=== PATIENT | female | born 1995 | race American Indian/Alaskan Native ===

== ENCOUNTER 2017-03-09 08:34 | Emergency (ER) | payer MEDICAID, OTHER ==
[2017-03-09] MEDS ORDERED: REGLAN IV ONE (09:20)
[2017-03-09] MEDS ORDERED: XYLOCAINE TOPICAL 4% TP ONE (09:20)
[2017-03-09] MEDS ORDERED: BENADRYL IV ONE (09:20)
[2017-03-09] MEDS ORDERED: MAGNESIUM SULFATE 2GM/50ML 2 GM/50 ML BAG IV ONE (09:20)
--- NOTE | 2017-03-09 09:26 | Emergency Department Report ---
ED General Adult HPI - General Chief complaint: Headache Stated complaint: LT ARM NUMB/LIPS NUMB /LT ARM PAIN Time Seen by Provider: 03/09/17 09:12 Source: patient, RN notes reviewed Mode of arrival: Ambulatory Limitations: No Limitations - History of Present Illness Initial comments: This is a 21-year-old female. She is previously unknown to me. She reports a history of stroke at the age of 18 (reports that she was seen at [facility], in [place]) she cannot further elaborate on this. She reports that she was diagnosed with a stroke secondary to "the hairs on my arm standing up." Patient presents to the ER with multiple complaints. The patient's first complaint is headache. The headache is left-sided. It is sharp, throbbing" dull and strong at the same time." The headache has been present for 4 days. It is not sudden or maximal in intensity. It did not reach maximal intensity within an hour. It has been waxing and waning for the past 4 days, and got worse yesterday. It is not the worst headache of her life, she reports headache that was worse last year. The patient's last complaint is left arm pain. The pain starts from the left shoulder and then radiates to the left elbow. It does not go distal. The patient to me indicates that she is not having left arm numbness or weakness. The patient's next complaint is numbness. The numbness is on the internal side of both lips. It has since resolved. There is no midline neck pain, there is no chest pain, there is no abdominal pain, there is no shortness of breath. There is no leg pain or leg swelling. No recent trips greater than 4 hours. No recent hospital admissions. -: Gradual Location: head (headache has been present for 4 days), mouth (superior and inferior lip numbness which has since resolved), left, upper extremity (left upper extremity pain from shoulder to elbow) Severity scale (0 -10): 9 Quality: aching Consistency: intermittent Improves with: other (headache worsens with exposure to light. Left arm pain worsens with palpation and range of motion.) Worsens with: other (as per history of present illness) Associated Symptoms: other (as per history of present illness) - Related Data Previous Rx's Medication Instructions Recorded Last Taken Type Ibuprofen [Motrin] 600 mg PO Q8H PRN #30 tablet 03/09/17 Unknown Rx Ondansetron [Zofran Odt] 4 mg PO QID PRN #20 tab.rapdis 03/09/17 Unknown Rx Allergies Allergy/AdvReac Type Severity Reaction Status Date / Time No Known Allergies Allergy Unverified 03/09/17 08:41 ED Review of Systems ROS: Stated complaint: LT ARM NUMB/LIPS NUMB /LT ARM PAIN Other details as noted in HPI Constitutional: denies: fever, malaise Eyes: denies: vision change ENT: as per HPI Respiratory: denies: cough Cardiovascular: denies: chest pain Gastrointestinal: denies: abdominal pain Genitourinary: as per HPI Musculoskeletal: arthralgia, myalgia Skin: denies: lesions Neurological: headache ED Past Medical Hx - Past Medical History Previous Medical History?: Yes Hx CVA: Yes - Surgical History Past Surgical History?: No - Social History Smoking Status: Current Every Day Smoker Substance Use Type: None - Medications Home Medications: Home Medications Medication Instructions Recorded Confirmed Last Taken Type Ibuprofen [Motrin] 600 mg PO Q8H PRN #30 tablet 03/09/17 Unknown Rx Ondansetron [Zofran Odt] 4 mg PO QID PRN #20 tab.rapdis 03/09/17 Unknown Rx ED Physical Exam - General Limitations: No Limitations General appearance: alert, in no apparent distress - Head Head exam: Present: atraumatic, normocephalic - Eye Eye exam: Present: normal appearance, PERRL, EOMI. Absent: nystagmus - ENT ENT exam: Present: normal exam, normal orophraynx, mucous membranes moist, normal external ear exam - Neck Neck exam: Present: normal inspection, full ROM. Absent: tenderness, meningismus - Respiratory Respiratory exam: Present: normal lung sounds bilaterally. Absent: respiratory distress, wheezes, rales, rhonchi, stridor, chest wall tenderness, accessory muscle use, decreased breath sounds, prolonged expiratory - Cardiovascular Cardiovascular Exam: Present: regular rate, normal rhythm, normal heart sounds. Absent: bradycardia, tachycardia, irregular rhythm, systolic murmur, diastolic murmur, rubs, gallop - GI/Abdominal GI/Abdominal exam: Present: soft, normal bowel sounds. Absent: distended, tenderness, guarding, rebound, rigid, pulsatile mass - Extremities Exam Extremities exam: Present: normal inspection, full ROM, tenderness (the left medial biceps/arm is somewhat tender. The compartments are soft. There is no redness, pus or streaking), normal capillary refill. Absent: pedal edema, joint swelling, calf tenderness - Back Exam Back exam: Present: normal inspection, full ROM. Absent: tenderness, CVA tenderness (R), CVA tenderness (L), muscle spasm, paraspinal tenderness, vertebral tenderness - Neurological Exam Neurological exam: Present: alert (visual acuity intact to finger counting, color perception, reading at a close distance), oriented X3, normal gait ( normal [id number]. Negative pass pointing. Negative pronator drift. Normal gait.), other (Extraocular movements intact. Tongue midline. No facial droop. Facial sensation intact to light touch in the V1, V2, V3 distribution bilaterally. 5 and 5 strength in 4 extremities.. Sensation is intact to light touch in 4 extremities.). Absent: motor sensory deficit (sensation intact to light touch and pinprick in the bilateral upper and lower extremities) - Psychiatric Psychiatric exam: Present: normal affect, normal mood - Skin Skin exam: Present: warm, dry, intact, normal color. Absent: rash ED Course Vital Signs 03/09/17 03/09/17 03/09/17 08:43 08:51 09:01 Temperature 98 F Pulse Rate 74 Respiratory 18 Rate Blood Pressure 137/80 130/63 Blood Pressure [Right] O2 Sat by Pulse 97 99 100 Oximetry 03/09/17 03/09/17 03/09/17 09:09 09:11 09:27 Temperature 97.8 F Pulse Rate 62 Respiratory 18 Rate Blood Pressure 130/63 145/107 Blood Pressure 130/63 [Right] O2 Sat by Pulse 100 100 100 Oximetry 03/09/17 03/09/17 03/09/17 10:01 10:11 10:21 Temperature Pulse Rate Respiratory Rate Blood Pressure 145/107 145/107 116/66 Blood Pressure [Right] O2 Sat by Pulse 100 100 100 Oximetry 03/09/17 03/09/17 03/09/17 10:30 10:41 10:51 Temperature Pulse Rate Respiratory Rate Blood Pressure 109/62 125/65 125/65 Blood Pressure [Right] O2 Sat by Pulse 100 100 100 Oximetry 03/09/17 03/09/17 03/09/17 11:00 11:11 11:21 Temperature Pulse Rate Respiratory Rate Blood Pressure 145/77 145/77 122/56 Blood Pressure [Right] O2 Sat by Pulse 100 100 99 Oximetry 03/09/17 03/09/17 11:30 14:21 Temperature 98.2 F Pulse Rate 55 L Respiratory 20 Rate Blood Pressure 128/54 Blood Pressure 102/61 [Right] O2 Sat by Pulse 100 99 Oximetry - Reevaluation(s) Reevaluation #1: 03/09/17 09:47 Differential diagnosis: Migraine headache, tension headache, cluster headache, multiple sclerosis, left upper extremity DVT Assessment and plan: 21-year-old female with multiple complaints. Headache is not historically consistent with subarachnoid hemorrhage or ischemic stroke. The patient has an NIH score of 0, and a GCS of 15. 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 Highly doubt acute coronary syndrome, low risk by ALEXANDRO score, low risk by Hartzler, EKG morphologically unremarkable, with sinus bradycardia. No pulmonary embolus or DVT risk factors, low risk by well's criteria, perc negative. We will obtain a noncontrast CT scan of the brain to exclude gross structural disease, will check basic laboratory studies, we will obtain left upper extremity DVT study, the patient will be treated symptomatically. 03/09/17 09:50 03/09/17 15:01 Reevaluation #2: 03/09/17 13:50 ct head negative repeat neuro exam wnl repeat vitals stable patient appears comfortable her symptoms do not appear being consistent with stroke/TIA. She was suitable for follow-up with an outpatient primary care doctor/ neurologist. She will be discharged at this time. Return precautions are reviewed. ED Medical Decision Making - Lab Data Result diagrams: 03/09/17 10:52 03/09/17 10:52 Vital Signs 03/09/17 03/09/17 08:43 09:09 Temperature 98 F 97.8 F Pulse Rate 74 62 Respiratory 18 18 Rate Blood Pressure 137/80 Blood Pressure 130/63 [Right] O2 Sat by Pulse 97 100 Oximetry Vital Signs 03/09/17 03/09/17 03/09/17 08:43 08:51 09:01 Temperature 98 F Pulse Rate 74 Respiratory 18 Rate Blood Pressure 137/80 130/63 Blood Pressure [Right] O2 Sat by Pulse 97 99 100 Oximetry 03/09/17 03/09/17 03/09/17 09:09 09:11 09:27 Temperature 97.8 F Pulse Rate 62 Respiratory 18 Rate Blood Pressure 130/63 145/107 Blood Pressure 130/63 [Right] O2 Sat by Pulse 100 100 100 Oximetry 03/09/17 03/09/17 03/09/17 10:01 10:11 10:21 Temperature Pulse Rate Respiratory Rate Blood Pressure 145/107 145/107 116/66 Blood Pressure [Right] O2 Sat by Pulse 100 100 100 Oximetry 03/09/17 03/09/17 03/09/17 10:30 10:41 10:51 Temperature Pulse Rate Respiratory Rate Blood Pressure 109/62 125/65 125/65 Blood Pressure [Right] O2 Sat by Pulse 100 100 100 Oximetry 03/09/17 03/09/17 03/09/17 11:00 11:11 11:21 Temperature Pulse Rate Respiratory Rate Blood Pressure 145/77 145/77 122/56 Blood Pressure [Right] O2 Sat by Pulse 100 100 99 Oximetry 03/09/17 11:30 Temperature Pulse Rate Respiratory Rate Blood Pressure 128/54 Blood Pressure [Right] O2 Sat by Pulse 100 Oximetry Lab Results 03/09/17 03/09/17 03/09/17 Range/Units 10:52 10:52 10:52 WBC 10.1 (4.5-11.0) K/mm3 RBC 4.42 (3.65-5.03) M/mm3 Hgb 12.9 (10.1-14.3) gm/dl Hct 38.4 (30.3-42.9) % MCV 87 (79-97) fl MCH 29 (28-32) pg MCHC 34 (30-34) % RDW 13.8 (13.2-15.2) % Plt Count 349 (140-440) K/mm3 PT 13.4 (12.2-14.9) Sec. INR 1.03 (0.87-1.13) APTT 28.6 (24.2-36.6) Sec. Sodium 142 (137-145) mmol/L Potassium 4.0 (3.6-5.0) mmol/L Chloride 103.8 (98-107) mmol/L Carbon Dioxide 24 (22-30) mmol/L Anion Gap 18 mmol/L BUN 12 (7-17) mg/dL Creatinine 0.6 L (0.7-1.2) mg/dL Estimated GFR > 60 ml/min BUN/Creatinine Ratio 20.00 % Glucose 89 (65-100) mg/dL Calcium 9.3 (8.4-10.2) mg/dL Total Creatine Kinase 279 H (30-135) units/L Troponin T < 0.010 (0.00-0.029) ng/mL HCG, Quant (0-4) mIU/mL 03/09/17 Range/Units 10:52 WBC (4.5-11.0) K/mm3 RBC (3.65-5.03) M/mm3 Hgb (10.1-14.3) gm/dl Hct (30.3-42.9) % MCV (79-97) fl MCH (28-32) pg MCHC (30-34) % RDW (13.2-15.2) % Plt Count (140-440) K/mm3 PT (12.2-14.9) Sec. INR (0.87-1.13) APTT (24.2-36.6) Sec. Sodium (137-145) mmol/L Potassium (3.6-5.0) mmol/L Chloride (98-107) mmol/L Carbon Dioxide (22-30) mmol/L Anion Gap mmol/L BUN (7-17) mg/dL Creatinine (0.7-1.2) mg/dL Estimated GFR ml/min BUN/Creatinine Ratio % Glucose (65-100) mg/dL Calcium (8.4-10.2) mg/dL Total Creatine Kinase (30-135) units/L Troponin T (0.00-0.029) ng/mL HCG, Quant < 2 (0-4) mIU/mL - EKG Data 03/09/17 09:51 sinus bradycardia, 57 bpm, normal intervals, normal axis, not morphologically consistent with STEMI. - Radiology Data Radiology results: pending, report reviewed LIVE [facility] NAHEDDONI Tyler [facility] 1995 [id number] 03/09/17 10:07 - Radiology Dept. Note by NADEEN PINEDA Acct Num: [id number] : 1995 Patient Age: 21 VASCULAR LAB PRELIMINARY REPORT BRYAN VENOUS DOPPLER COMPLETED NO EVIDENCE OF DVT/SVT NOTED IN VESSELS/SEGMENTS VISUALIZED Initialized on 03/09/17 10:07 - END OF NOTE Critical care attestation.: If time is entered above; I have spent that time in minutes in the direct care of this critically ill patient, excluding procedure time. ED Disposition Clinical Impression: Headache, Left arm pain Disposition: - TO HOME OR SELFCARE Is pt being admited?: No Does the pt Need Aspirin: No Condition: Stable Instructions: Acute Headache (ED) Additional Instructions: Take the pain medication, nausea medication as directed. Follow up with the primary care doctor or neurology specialist within the next [address] Small is a local neurology specialist. Dr. Patterson and Dr. Alvarado are all local neurology specialist. Dr. Cheng is a local primary care doctor. Return to the ER right away with new pain, worsened pain, migration of pain, fevers or chills, intractable nausea or vomiting, confusion, inability tolerate liquid feeds, new, worsening or different symptoms. Prescriptions: Ibuprofen [Motrin] 600 mg PO Q8H PRN #30 tablet PRN Reason: Pain Ondansetron [Zofran Odt] 4 mg PO QID PRN #20 tab.rapdis PRN Reason: Nausea Referrals: PRIMARY CARE, [Primary Care Provider] - 3-5 Days REGAN CHENG MD [Staff Physician] - 3-5 Days EMILY SMALL MD [Staff Physician] - 3-5 Days FILIBERTO PATTERSON MD [Staff Physician] - 3-5 Days VALARIE ALVARADO MD [Staff Physician] - 3-5 Days Forms: Work/School Release Form(ED)
[2017-03-09 11:11] LABS: Hematocrit 38.4 % (30.3-42.9); Hemoglobin 12.9 gm/dl (10.1-14.3); Mean Corpuscular HGB Conc 34 % (30-34); Mean Corpuscular Hemoglobin 29 pg (28-32); Mean Corpuscular Volume 87 fl (79-97); Platelet Count 349 K/mm3 (140-440); Red Blood Count 4.42 M/mm3 (3.65-5.03); Red Cell Distribution Width 13.8 % (13.2-15.2); White Blood Count 10.1 K/mm3 (4.5-11.0)
[2017-03-09 11:21] LABS: INR 1.03 (0.87-1.13)
[2017-03-09 11:22] LABS: Partial Thromboplastin Time 28.6 Sec. (24.2-36.6)
[2017-03-09 11:36] LABS: Anion Gap 18 mmol/L; Blood Urea Nitrogen 12 mg/dL (7-17); Calcium 9.3 mg/dL (8.4-10.2); Carbon Dioxide 24 mmol/L (22-30); Chloride 103.8 mmol/L (98-107); Creatine Kinase 279 units/L (30-135); Glucose 89 mg/dL (65-100); Sodium 142 mmol/L (137-145)
--- NOTE | 2017-03-09 12:45 | Cat Scan Report ---
CT HEAD WITHOUT CONTRAST INDICATION: Headache. COMPARISON: None similar. FINDINGS: Noncontrast head CT demonstrates normal ventricles and sulci without acute or recent infarct, hemorrhage, mass effect or midline shift. No abnormal extra-axial fluid collections. Posterior fossa structures and basilar cisterns appear within normal limits. Symmetric eye globes. Approximately 3 mm leftward nasal septal spur. Clear paranasal sinuses and mastoid air cells. Intact calvarium. Normal overlying scalp soft tissues. Small radiopaque dental material incidentally noted. CONCLUSION: No acute intracranial CT abnormality, as described. Thank you for the opportunity to participate in this patient's care.
[2017-03-09 14:22] VITALS: BP 102/61
--- NOTE | 2017-03-10 16:54 | Vascular Lab Report ---
LEFT UPPER EXTREMITY VENOUS DUPLEX: REASON FOR EXAM: Pain of the left upper extremity COMMENTS ON THE LEFT: All arm veins visualized are freely compressible without evidence of internal echogenicity. The subclavian and internal jugular veins are free of thrombus. Flow is spontaneous and phasic throughout. COMMENTS ON THE RIGHT: The subclavian and internal jugular veins are free of thrombus. IMPRESSION: No evidence of acute or chronic deep venous thrombosis in the left upper extremity.
== END 2017-03-09 14:22 | disposition home or self-care (01) ==
LOC: ED 08:34
DX: R51 Headache (principal); R20.0 Anesthesia of skin; F17.200 Nicotine dependence, unspecified, uncomplicated; Z86.73 Personal history of transient ischemic attack (TIA), and cerebral infarction without residual deficits
CPT/HCPCS: 36415; 70450; 80048; 82550; 84484; 84702; 85027; 85610; 85730; 93005; 93010; 93971; 96365; 96375; 99284; J1200; J2765; J2930; J3475

== ENCOUNTER 2017-08-06 20:31 | Emergency (ER) | payer SELFPAY ==
[2017-08-06 21:01] VITALS: BP 109/89
== END 2017-08-06 21:15 | disposition left against medical advice (07) ==
LOC: ED 20:31
DX: R51 Headache (principal); Z53.21 Procedure and treatment not carried out due to patient leaving prior to being seen by health care provider

== ENCOUNTER 2021-03-13 14:58 | Emergency (ER) | payer SELFPAY ==
[2021-03-13 15:16] VITALS: BP 140/89
[2021-03-13] MEDS ORDERED: IBUPROFEN 600 MG TAB PO ONE (17:28)
--- NOTE | 2021-03-13 17:57 | Emergency Department Report ---
ED Lower Extremity HPI - General Chief Complaint: Extremity Injury, Lower Stated Complaint: LEFT KNEE PAIN Time Seen by Provider: 03/13/21 17:28 Source: patient Mode of arrival: Wheelchair Limitations: No Limitations - History of Present Illness Initial Comments: Patient is a 25-year-old female presents emergency room complaints of left knee pain that began just prior to arrival. Patient states that she was sitting on the edge of the tub and had her feet planted and she turned but did not turn her leg and felt a popping sensation of her left knee. She denies ever injuring this knee in the past. She denies any numbness or weakness. She states that she is not able to ambulate secondary to pain. No past medical history. No allergies to medications. - Related Data Previous Rx's Medication Instructions Recorded Last Taken Type Ibuprofen [Motrin] 600 mg PO Q8H PRN #30 tablet 03/09/17 Unknown Rx Ondansetron [Zofran Odt] 4 mg PO QID PRN #20 tab.rapdis 03/09/17 Unknown Rx Naproxen [EC-Naproxen] 500 mg PO BID PRN #14 tablet. 03/13/21 Unknown Rx Allergies Allergy/AdvReac Type Severity Reaction Status Date / Time No Known Allergies Allergy Unverified 03/09/17 08:41 ED Review of Systems ROS: Stated complaint: LEFT KNEE PAIN Other details as noted in HPI Comment: All other systems reviewed and negative ED Past Medical Hx - Past Medical History Previous Medical History?: Yes Hx CVA: Yes - Surgical History Past Surgical History?: No - Social History Smoking Status: Current Every Day Smoker Substance Use Type: None - Medications Home Medications: Home Medications Medication Instructions Recorded Confirmed Last Taken Type Ibuprofen [Motrin] 600 mg PO Q8H PRN #30 tablet 03/09/17 Unknown Rx Ondansetron [Zofran Odt] 4 mg PO QID PRN #20 tab.rapdis 03/09/17 Unknown Rx Naproxen [EC-Naproxen] 500 mg PO BID PRN #14 tablet. 03/13/21 Unknown Rx ED Physical Exam - General Limitations: No Limitations General appearance: alert, in no apparent distress - Head Head exam: Present: atraumatic, normocephalic - Eye Eye exam: Present: normal appearance - ENT ENT exam: Present: mucous membranes moist - Extremities Exam Extremities exam: Present: other (no bony ttp of the LLE, FROM of the LLE with discomfort upon full extension of the left knee, no deformity, no obvious joint laxity, neurovascularly intact) - Neurological Exam Neurological exam: Present: alert, oriented X3 - Psychiatric Psychiatric exam: Present: normal affect, normal mood - Skin Skin exam: Present: warm, dry, intact ED Course Vital Signs 03/13/21 15:15 Temperature 98.2 F Pulse Rate 75 Respiratory 18 Rate Blood Pressure 140/89 [Right] ED Lower Extremity MDM - Radiology Data Radiology results: report reviewed Ordering Physician: BENJI VIEIRA Date of Service: 03/13/21 Procedure(s): XR knee 3V LT Accession Number(s): [id number] cc: BENJI VIEIRA Fluoro Time In Minutes: HISTORY:right knee pain after popping sensation COMPARISON: None. TECHNIQUE: AP lateral and obliques views were obtained FINDINGS: Bones: No fracture or dislocation. Joint spaces: Maintained. Soft tissues: No significant abnormality. Additional findings: None. IMPRESSION: 1. No significant abnormality. Signer Name: Alberto Carrera MD Signed: 03/13/2021 6:13 PM Workstation Name: [id number] Transcribed By: WG Dictated By: Alberto Carerra MD Electronically Authenticated By: Alberto Carrera MD Signed Date/Time: 03/13/211812 DD/ 11 TD/TT: - Medical Decision Making Patient is a 25-year-old female presents emergency room complaints of left knee pain that began just prior to arrival. Patient states that she was sitting on the edge of the tub and had her feet planted and she turned but did not turn her leg and felt a popping sensation of her left knee. She denies ever injuring this knee in the past. She denies any numbness or weakness. She states that she is not able to ambulate secondary to pain. No past medical history. No allergies to medications. Vitals are stable. On exam:no bony ttp of the LLE, FROM of the LLE with discomfort upon full extension of the left knee, no deformity, no obvious joint laxity, neurovascularly intact. X-ray left knee: 1. No significant abnormality. Symptoms likely related to knee sprain. Patient placed in José Miguel wrap and given crutches by engagement quality consultant remain neurovascular intact. Advised patient Please take medication as prescribed. Follow-up with orthopedic doctor. Please do not wear José Miguel bandage too tightly and do not wear a night while sleeping. May use ice 15 minutes at a time, rest, elevation of the leg. Return to emergency room for new or worsening symptoms. Critical care attestation.: If time is entered above; I have spent that time in minutes in the direct care of this critically ill patient, excluding procedure time. ED Disposition Clinical Impression: Left knee pain Qualifiers: Chronicity: acute Qualified Code(s): M25.562 - Pain in left knee Disposition: - TO HOME OR SELFCARE Is pt being admited?: No Does the pt Need Aspirin: No Condition: Stable Instructions: Knee Sprain, Adult, [id number] Additional Instructions: Please take medication as prescribed. Follow-up with orthopedic doctor. Please do not wear José Miguel bandage too tightly and do not wear a night while sleeping. May use ice 15 minutes at a time, rest, elevation of the leg. Return to emergency room for new or worsening symptoms. Prescriptions: Naproxen [EC-Naproxen] 500 mg PO BID PRN #14 tablet.dr DIETRICH Reason: pain Referrals: FRAN ANDERS MD [Staff Physician] - 2-3 Days [facility] [Provider Group] - 2-3 Days Time of Disposition: 18:21 Print Language: SLOVAK
--- NOTE | 2021-03-13 18:17 | XRay Report ---
HISTORY:right knee pain after popping sensation COMPARISON: None. TECHNIQUE: AP lateral and obliques views were obtained FINDINGS: Bones: No fracture or dislocation. Joint spaces: Maintained. Soft tissues: No significant abnormality. Additional findings: None. IMPRESSION: 1. No significant abnormality. Signer Name: Alberto Carrera MD Signed: 03/13/2021 6:13 PM Workstation Name: [id number]
== END 2021-03-13 18:49 | disposition home or self-care (01) ==
LOC: ED 14:58
DX: M25.562 Pain in left knee (principal); F17.200 Nicotine dependence, unspecified, uncomplicated; Z79.899 Other long term (current) drug therapy; Z86.73 Personal history of transient ischemic attack (TIA), and cerebral infarction without residual deficits

== ENCOUNTER 2021-03-31 22:03 | Emergency (ER) | payer SELFPAY | END 2021-04-01 | disposition left against medical advice (07) | LOC: ED 22:03 | DX: M79.18 Myalgia, other site (principal); Z53.21 Procedure and treatment not carried out due to patient leaving prior to being seen by health care provider ==